=== PATIENT | female | born 1985 | race Caucasian/White ===

== ENCOUNTER 2021-06-07 19:56 | Inpatient (IN) | payer OTHER, BC ==
[~2021-06-07 19:56] MED LIST: Iopamidol-370 76% 500 ML 1 ML ONE
[2021-06-07 20:23] LABS: #Lymphocytes 1.6 thou/uL (1.20-3.40); #Monocytes 1.1 thou/uL (0.11-0.59); #Neutrophils 16.2 thou/uL (1.40-6.50); %Basophils 0.2 % (0.0-1.0); %Eosinophils 0.2 % (0.0-10.0); %Lymphocytes 8.4 % (21.0-51.0); %Monocytes 5.7 % (0.0-10.0); %Neutrophils 85.5 % (42.0-75.0); Mean Corpuscular HGB CONC 33.1 g/dL (32.0-36.0); Mean Corpuscular Hemoglobin 31.7 pg (27.0-31.0); Mean Corpuscular Volume 95.6 fL (78.0-98.0); Mean Platelet Volume 6.2 fL (7.4-10.4); Platelet Count 377 thou/uL (130-400); RBC Distribution Width 12.4 % (11.5-14.5); Red Blood Cell (RBC) Count 4.43 mill/uL (4.20-5.40); White Blood Cell (WBC) Count 18.9 thou/uL (4.8-10.8)
[2021-06-07] MEDS ORDERED: Fentanyl 100 MCG/2 ML VIAL ONE ×2 (20:23→21:39)
[2021-06-07 20:33] LABS: BHCG - Serum Negative (NEGATIVE); Pregs Control Background? CLEAR/WHITE (CLR/WHITE); Pregs Control Bar Appear? YES (CONTROL BAR)
[2021-06-07 20:49] LABS: ALT (SGPT) 50 U/L (8-55); AST (SGOT) 61 U/L (5-34); Albumin 4.2 g/dL (3.5-5.0); Alcohol Less than 10 mg/dL (Less than 10); Alkaline Phosphatase 72 U/L (40-110); Anion Gap 12 mmol/L (10-20); BUN (Urea Nitrogen) 4 mg/dL (7.0-18.7); Bilirubin, Total 0.3 mg/dL (0.2-1.2); Calc. Creatinine Clearance 0 mL/min (70-130); Calcium 9.5 mg/dL (7.8-10.44); Carbon Dioxide 23 mmol/L (22-29); Chloride 104 mmol/L (98-107); Globulin 2.9 g/dL (2.4-3.5); Glucose 106 mg/dL (70-105); Lipase 27 U/L (8-78); Potassium 3.4 mmol/L (3.5-5.1); Protein, Total 7.1 g/dL (6.0-8.3); Sodium 136 mmol/L (136-145)
[2021-06-07] MEDS ORDERED: Tranexamic Acid 1,000 MG/10 ML VIAL ONE (21:17)
[2021-06-07] MEDS ORDERED: Ondansetron PF 4 MG/2 ML Vial ONE (21:21)
[2021-06-07 21:46] LABS: PTT 28.3 sec (22.9-36.1); Prothrombin Time 13.5 sec (12.0-14.7)
[2021-06-07] MEDS ORDERED: Boostrix 0.5 ML (Tdap) VIAL ONE (21:46)
[2021-06-07] MEDS ORDERED: Dextrose 50% Abboject 50 ML SYRINGE SLOW IVP PRN ×2 (22:21→22:32)
[2021-06-07] MEDS ORDERED: Ondansetron PF 4 MG/2 ML Vial IVP PRN (22:21)
[2021-06-07] MEDS ORDERED: Dextrose 5% in Water 1,000 ML IV PRN ×2 (22:21→22:32)
[2021-06-07] MEDS ORDERED: Promethazine HCl 25 MG/ML VIAL IM PRN ×2 (22:21)
[2021-06-07] MEDS ORDERED: hydrALAZINE 20 MG/ML VIAL SLOW IVP PRN (22:21)
[2021-06-07] MEDS ORDERED: Ondansetron ODT 4 MG TAB PO PRN (22:21)
[2021-06-07] MEDS ORDERED: traMADol HCl 50 MG TAB PO PRN (22:32)
[2021-06-07] MEDS ORDERED: Acetaminophen 325 MG TAB PO PRN (22:43)
[2021-06-07 22:49] LABS: Hemoglobin 13.7 g/dL (12.0-16.0)
[2021-06-08] MEDS: traMADol HCl 50 MG TAB PO PRN (00:04)
[2021-06-08] MEDS: Sodium Chloride 0.9% 1,000 ML IV SCH ×2 (00:06→12:46)
[2021-06-08 00:35] VITALS: BMI 36.6
[2021-06-08 01:29] LABS: Magnesium 1.7 mg/dL (1.6-2.6); Phosphorus 3.1 mg/dL (2.3-4.7)
[2021-06-08] MEDS: Cyclobenzaprine 10 MG TAB PO PRN (02:28)
[2021-06-08] MEDS: Acetaminophen/Codeine 30-300mg Tablet PO PRN ×2 (04:25→15:53)
[2021-06-08 05:25] LABS: #Lymphocytes 1.3 thou/uL (1.20-3.40); #Monocytes 0.8 thou/uL (0.11-0.59); #Neutrophils 10.6 thou/uL (1.40-6.50); %Lymphocytes 10.3 % (21.0-51.0); %Monocytes 6.6 % (0.0-10.0); Hemoglobin 12.5 g/dL (12.0-16.0); Mean Corpuscular HGB CONC 34.2 g/dL (32.0-36.0); Mean Corpuscular Hemoglobin 32.1 pg (27.0-31.0); Mean Corpuscular Volume 93.8 fL (78.0-98.0); Mean Platelet Volume 6.5 fL (7.4-10.4); Platelet Count 304 thou/uL (130-400); RBC Distribution Width 12.5 % (11.5-14.5); Red Blood Cell (RBC) Count 3.91 mill/uL (4.20-5.40); White Blood Cell (WBC) Count 12.8 thou/uL (4.8-10.8)
[2021-06-08 05:49] LABS: Anion Gap 14 mmol/L (10-20); BUN (Urea Nitrogen) 5 mg/dL (7.0-18.7); Calc. Creatinine Clearance 206 mL/min (70-130); Calcium 8.8 mg/dL (7.8-10.44); Carbon Dioxide 20 mmol/L (22-29); Chloride 105 mmol/L (98-107); Glucose 128 mg/dL (70-105); Magnesium 1.8 mg/dL (1.6-2.6); Potassium 3.9 mmol/L (3.5-5.1); Sodium 135 mmol/L (136-145)
[2021-06-08] MEDS ORDERED: Ibuprofen 800 MG TAB PO SCH (06:00)
[2021-06-08] MEDS ORDERED: Magnesium Sulfate 2 GM in Sodium Chloride 0.9% 100 ML IV SCH (07:45)
[2021-06-08] MEDS ORDERED: Magnesium 2 GM/50 ML 2 GM in Premix Bag 1 BAG IVPB SCH (08:00)
[2021-06-08] MEDS: Famotidine 20 MG TAB PO SCH ×2 (08:50→20:43)
[2021-06-08 09:40] LABS: Hemoglobin 12.4 g/dL (12.0-16.0)
[2021-06-08] MEDS ORDERED: traMADol HCl 50 MG TAB PO SCH (11:00)
[2021-06-08] MEDS: Acetaminophen 325 MG TAB PO SCH ×3 (11:58→23:44)
[2021-06-08] MEDS: ALPRAZolam 0.5 MG TAB PO PRN (12:46)
[2021-06-08] MEDS: Gabapentin 300 MG CAP PO SCH ×2 (14:09→20:43)
[2021-06-08] MEDS: traMADol HCl 50 MG TAB PO SCH ×2 (14:10→20:44)
[2021-06-08 15:54] LABS: SARS-CoV-2 PCR by NAA Not Detected (NotDetected)
[2021-06-08 17:12] LABS: Hemoglobin 12.7 g/dL (12.0-16.0)
[2021-06-09 01:28] LABS: Hemoglobin 11.7 g/dL (12.0-16.0)
[2021-06-09] MEDS: traMADol HCl 50 MG TAB PO SCH ×4 (03:28→17:56)
[2021-06-09] MEDS: Acetaminophen 325 MG TAB PO SCH ×3 (04:30→17:56)
[2021-06-09] MEDS: traMADol HCl 50 MG TAB PO PRN ×2 (04:30→11:55)
[2021-06-09] MEDS ORDERED: Bisacodyl 10 MG SUPP PR PRN (07:16)
[2021-06-09 08:35] LABS: #Lymphocytes 1.6 thou/uL (1.20-3.40); #Monocytes 0.7 thou/uL (0.11-0.59); #Neutrophils 5.4 thou/uL (1.40-6.50); %Basophils 0.1 % (0.0-1.0); %Eosinophils 0.2 % (0.0-10.0); %Lymphocytes 20.3 % (21.0-51.0); %Neutrophils 70.4 % (42.0-75.0); Hemoglobin 12.2 g/dL (12.0-16.0); Mean Corpuscular HGB CONC 33.5 g/dL (32.0-36.0); Mean Corpuscular Hemoglobin 31.9 pg (27.0-31.0); Mean Corpuscular Volume 95.2 fL (78.0-98.0); Mean Platelet Volume 6.6 fL (7.4-10.4); Platelet Count 260 thou/uL (130-400); RBC Distribution Width 12.5 % (11.5-14.5); Red Blood Cell (RBC) Count 3.82 mill/uL (4.20-5.40); White Blood Cell (WBC) Count 7.6 thou/uL (4.8-10.8)
[2021-06-09] MEDS: Gabapentin 300 MG CAP PO SCH ×3 (08:48→20:54)
[2021-06-09] MEDS: Famotidine 20 MG TAB PO SCH ×2 (08:49→20:54)
[2021-06-09] MEDS: Senokot S 8.6-50 MG TAB PO SCH ×2 (08:50→20:54)
[2021-06-09] MEDS: Polyethylene Glycol 3350 17 GM Packet PO SCH (08:50)
[2021-06-09 08:59] LABS: Anion Gap 10 mmol/L (10-20); BUN (Urea Nitrogen) Less than 4 mg/dL (7.0-18.7); Calc. Creatinine Clearance 257 mL/min (70-130); Calcium 8.5 mg/dL (7.8-10.44); Carbon Dioxide 26 mmol/L (22-29); Chloride 105 mmol/L (98-107); Glucose 86 mg/dL (70-105); Magnesium 1.9 mg/dL (1.6-2.6); Phosphorus 2.7 mg/dL (2.3-4.7); Potassium 3.9 mmol/L (3.5-5.1); Sodium 137 mmol/L (136-145)
[2021-06-09] MEDS: Cyclobenzaprine 10 MG TAB PO PRN (22:07)
[2021-06-10] MEDS: Acetaminophen 325 MG TAB PO SCH ×5 (00:29→23:26)
[2021-06-10] MEDS: traMADol HCl 50 MG TAB PO SCH ×5 (01:11→23:26)
[2021-06-10 05:56] LABS: #Monocytes 0.8 thou/uL (0.11-0.59); #Neutrophils 6.7 thou/uL (1.40-6.50); %Basophils 0.1 % (0.0-1.0); %Eosinophils 0.1 % (0.0-10.0); %Lymphocytes 21.2 % (21.0-51.0); %Monocytes 8.3 % (0.0-10.0); %Neutrophils 70.3 % (42.0-75.0); Hemoglobin 11.5 g/dL (12.0-16.0); Mean Corpuscular HGB CONC 33.6 g/dL (32.0-36.0); Mean Corpuscular Hemoglobin 31.7 pg (27.0-31.0); Mean Corpuscular Volume 94.5 fL (78.0-98.0); Mean Platelet Volume 6.7 fL (7.4-10.4); Platelet Count 253 thou/uL (130-400); RBC Distribution Width 12.5 % (11.5-14.5); Red Blood Cell (RBC) Count 3.62 mill/uL (4.20-5.40); White Blood Cell (WBC) Count 9.6 thou/uL (4.8-10.8)
[2021-06-10 06:24] LABS: Anion Gap 7 mmol/L (10-20); BUN (Urea Nitrogen) 6 mg/dL (7.0-18.7); Calc. Creatinine Clearance 218 mL/min (70-130); Calcium 8.7 mg/dL (7.8-10.44); Carbon Dioxide 29 mmol/L (22-29); Chloride 105 mmol/L (98-107); Glucose 96 mg/dL (70-105); Magnesium 1.7 mg/dL (1.6-2.6); Phosphorus 3.2 mg/dL (2.3-4.7); Potassium 3.5 mmol/L (3.5-5.1); Sodium 137 mmol/L (136-145)
[2021-06-10] MEDS: Senokot S 8.6-50 MG TAB PO SCH ×2 (08:20→20:45)
[2021-06-10] MEDS: Gabapentin 300 MG CAP PO SCH ×3 (08:20→20:45)
[2021-06-10] MEDS: Famotidine 20 MG TAB PO SCH (08:20)
[2021-06-10] MEDS: Polyethylene Glycol 3350 17 GM Packet PO SCH (08:21)
[2021-06-10] MEDS: Cyclobenzaprine 10 MG TAB PO PRN ×2 (11:34→20:45)
[2021-06-11] MEDS: traMADol HCl 50 MG TAB PO SCH ×3 (05:45→17:57)
[2021-06-11] MEDS: Acetaminophen 325 MG TAB PO SCH ×3 (05:46→17:57)
[2021-06-11] MEDS ORDERED: Magnesium Sulfate 3 GM in Sodium Chloride 0.9% 100 ML IVPB SCH ×2 (09:00→10:57)
[2021-06-11] MEDS ORDERED: Potassium Phosphate 30 MMOL, Magnesium Sulfate 3 GM in Sodium Chloride 0.9% 250 ML IVPB SCH (09:00)
[2021-06-11] MEDS: Gabapentin 300 MG CAP PO SCH ×3 (09:19→20:49)
[2021-06-11] MEDS: Senokot S 8.6-50 MG TAB PO SCH ×2 (09:19→20:49)
[2021-06-11] MEDS: Polyethylene Glycol 3350 17 GM Packet PO SCH (09:19)
[2021-06-11] MEDS: ALPRAZolam 0.5 MG TAB PO PRN ×2 (09:27→20:49)
[2021-06-11 09:31] LABS: #Lymphocytes 1.7 thou/uL (1.20-3.40); #Monocytes 0.7 thou/uL (0.11-0.59); %Basophils 0.1 % (0.0-1.0); %Eosinophils 0.1 % (0.0-10.0); %Lymphocytes 19.9 % (21.0-51.0); %Monocytes 8.8 % (0.0-10.0); %Neutrophils 71.2 % (42.0-75.0); Hemoglobin 12.1 g/dL (12.0-16.0); Mean Corpuscular HGB CONC 32.2 g/dL (32.0-36.0); Mean Corpuscular Hemoglobin 30.4 pg (27.0-31.0); Mean Corpuscular Volume 94.3 fL (78.0-98.0); Mean Platelet Volume 6.5 fL (7.4-10.4); Platelet Count 308 thou/uL (130-400); RBC Distribution Width 12.7 % (11.5-14.5); Red Blood Cell (RBC) Count 3.98 mill/uL (4.20-5.40); White Blood Cell (WBC) Count 8.4 thou/uL (4.8-10.8)
[2021-06-11 10:21] LABS: Anion Gap 11 mmol/L (10-20); Carbon Dioxide 27 mmol/L (22-29); Chloride 101 mmol/L (98-107); Glucose 90 mg/dL (70-105); Potassium 3.8 mmol/L (3.5-5.1); Sodium 135 mmol/L (136-145)
[2021-06-11 10:26] LABS: BUN (Urea Nitrogen) 10 mg/dL (7.0-18.7); Calc. Creatinine Clearance 232 mL/min (70-130); Magnesium 1.6 mg/dL (1.6-2.6); Phosphorus 3.7 mg/dL (2.3-4.7)
[2021-06-11] MEDS ORDERED: [UNRECOGNIZED DRUG - OTHER] IVPB SCH (12:00)
[2021-06-11] MEDS ORDERED: POTASSIUM PHOSPHATE IVPB SCH (12:00)
[2021-06-11] MEDS ORDERED: MAGNESIUM SULFATE IVPB SCH (12:00)
[2021-06-11] MEDS: Acetaminophen/Codeine 30-300mg Tablet PO PRN (14:34)
[2021-06-12] MEDS: traMADol HCl 50 MG TAB PO SCH ×4 (00:05→17:36)
[2021-06-12] MEDS: Acetaminophen 325 MG TAB PO SCH ×4 (00:05→17:36)
[2021-06-12] MEDS: Acetaminophen/Codeine 30-300mg Tablet PO PRN (03:46)
[2021-06-12 07:09] LABS: #Lymphocytes 2.2 thou/uL (1.20-3.40); #Monocytes 0.6 thou/uL (0.11-0.59); #Neutrophils 4.7 thou/uL (1.40-6.50); %Basophils 0.1 % (0.0-1.0); %Eosinophils 0.1 % (0.0-10.0); %Lymphocytes 28.8 % (21.0-51.0); %Monocytes 8.1 % (0.0-10.0); %Neutrophils 62.9 % (42.0-75.0); Hemoglobin 12.2 g/dL (12.0-16.0); Mean Corpuscular HGB CONC 32.7 g/dL (32.0-36.0); Mean Corpuscular Hemoglobin 30.9 pg (27.0-31.0); Mean Corpuscular Volume 94.5 fL (78.0-98.0); Mean Platelet Volume 6.4 fL (7.4-10.4); Platelet Count 366 thou/uL (130-400); RBC Distribution Width 12.8 % (11.5-14.5); Red Blood Cell (RBC) Count 3.94 mill/uL (4.20-5.40); White Blood Cell (WBC) Count 7.5 thou/uL (4.8-10.8)
[2021-06-12 07:20] LABS: Anion Gap 12 mmol/L (10-20); BUN (Urea Nitrogen) 11 mg/dL (7.0-18.7); Calc. Creatinine Clearance 236 mL/min (70-130); Calcium 8.8 mg/dL (7.8-10.44); Carbon Dioxide 24 mmol/L (22-29); Chloride 102 mmol/L (98-107); Glucose 98 mg/dL (70-105); Magnesium 1.8 mg/dL (1.6-2.6); Phosphorus 3.9 mg/dL (2.3-4.7); Potassium 3.9 mmol/L (3.5-5.1); Sodium 134 mmol/L (136-145)
[2021-06-12] MEDS: Gabapentin 300 MG CAP PO SCH ×3 (09:15→20:14)
[2021-06-12] MEDS: Senokot S 8.6-50 MG TAB PO SCH (09:15)
[2021-06-12] MEDS: Polyethylene Glycol 3350 17 GM Packet PO SCH (09:15)
[2021-06-12] MEDS: Cyclobenzaprine 10 MG TAB PO PRN (14:39)
[2021-06-12] MEDS ORDERED: Senokot S 8.6-50 MG TAB PO SCH (18:45)
[2021-06-12] MEDS: ALPRAZolam 0.5 MG TAB PO PRN (20:14)
[2021-06-13] MEDS: Acetaminophen 325 MG TAB PO SCH ×5 (00:09→23:59)
[2021-06-13] MEDS: traMADol HCl 50 MG TAB PO SCH ×5 (00:09→23:59)
[2021-06-13] MEDS: Polyethylene Glycol 3350 17 GM Packet PO SCH (08:38)
[2021-06-13] MEDS: Gabapentin 300 MG CAP PO SCH ×3 (08:38→20:25)
[2021-06-13] MEDS: Senokot S 8.6-50 MG TAB PO SCH ×2 (08:38→20:30)
[2021-06-13] MEDS: Cyclobenzaprine 10 MG TAB PO PRN (16:02)
[2021-06-13] MEDS: ALPRAZolam 0.5 MG TAB PO PRN (20:25)
[2021-06-13] MEDS: Acetaminophen/Codeine 30-300mg Tablet PO PRN (20:29)
[2021-06-14] MEDS: Cyclobenzaprine 10 MG TAB PO PRN
[2021-06-14] MEDS: traMADol HCl 50 MG TAB PO SCH (05:27)
[2021-06-14] MEDS: Acetaminophen 325 MG TAB PO SCH (05:27)
[2021-06-14] MEDS: Polyethylene Glycol 3350 17 GM Packet PO SCH (08:02)
[2021-06-14] MEDS: Senokot S 8.6-50 MG TAB PO SCH (08:02)
[2021-06-14] MEDS: Gabapentin 300 MG CAP PO SCH (08:20)
[2021-06-14] MEDS: Acetaminophen/Codeine 30-300mg Tablet PO PRN (08:21)
[2021-06-14 08:31] VITALS: BP 118/86
[2021-06-14] MEDS: ALPRAZolam 0.5 MG TAB PO PRN (08:35)
[2021-06-14 08:53] VITALS: TEMP 97.7
== END 2021-06-14 08:50 | DRG 963 ==
LOC: ERS 19:56 → ERHOLD 21:24 → SURG A 23:30
PROVIDERS: ADMIT Surgery; ATTEND Surgery
PROC: 30233N1 Transfusion of Nonautologous Red Blood Cells into Peripheral Vein, Percutaneous Approach (ICD-10-PCS; principal; 2021-06-07)
PROC: 3E0G76Z Introduction of Nutritional Substance into Upper GI, Via Natural or Artificial Opening (ICD-10-PCS; 2021-06-10)
DX: S36.032A Major laceration of spleen, initial encounter (principal); Z20.822 Contact with and (suspected) exposure to COVID-19; Z23 Encounter for immunization; R57.8 Other shock; S32.591A Other specified fracture of right pubis, initial encounter for closed fracture; S22.41XA Multiple fractures of ribs, right side, initial encounter for closed fracture; S22.089A Unspecified fracture of T11-T12 vertebra, initial encounter for closed fracture; S32.10XA Unspecified fracture of sacrum, initial encounter for closed fracture; E87.1 Hypo-osmolality and hyponatremia; F41.9 Anxiety disorder, unspecified; J45.909 Unspecified asthma, uncomplicated; S42.021A Displaced fracture of shaft of right clavicle, initial encounter for closed fracture; V43.62XA Car passenger injured in collision with other type car in traffic accident, initial encounter; Y92.410 Unspecified street and highway as the place of occurrence of the external cause; Z88.5 Allergy status to narcotic agent; Z88.0 Allergy status to penicillin; Z90.49 Acquired absence of other specified parts of digestive tract
CPT/HCPCS: 36415; 36430; 70450; 71260; 72125; 74177; 80048; 80053; 80307; 82533; 83690; 83735; 84100; 84703; 85025; 85610; 85730; 86850; 86900; 86901; 90471; 90715; 93970; 94640; 96365; 96375; 96376; G0390; J2405; J3010; J3475; J3490; J7050; J7620; P9016; Q9967; U0003; U0005